=== PATIENT | male | born 1995 | race Caucasian/White ===

== ENCOUNTER 2017-07-07 22:19 | Emergency (ER) | payer MEDICAID ==
[~2017-07-07] VITALS: Ht 188 cm; Wt 76.7 kg
[2017-07-07] MEDS ORDERED: CITA20TA9 PO (22:36)
[2017-07-07 22:47] VITALS: BP 119/74
== END 2017-07-07 23:09 | disposition home or self-care (01) ==
LOC: ED 22:59
DX: K64.4 Residual hemorrhoidal skin tags (principal)
CPT/HCPCS: 99283